=== PATIENT | female | born 1970 | race Two or more races ===

== ENCOUNTER 2016-08-18 16:07 | Emergency (ER) | payer OTHER ==
[~2016-08-18] VITALS: Ht 154.9 cm; Wt 68.9 kg
[2016-08-18 16:55] LABS: Basophils # (auto) 0.1 uL; Basophils % (auto) 0.4 % (0.0-2.0); Eosinophils # (auto) 0 uL; Eosinophils % (auto) 0.3 % (0.0-7.0); Hematocrit 42.5 % (36.0-46.0); Hemoglobin 14.3 g/dL (12.2-16.2); Lymphocytes # (auto) 1.7 uL; Lymphocytes % (auto) 12.8 % (10.0-50.0); Mean Corpuscular Hemoglobin 29.4 pg (28.0-32.0); Mean Corpuscular Hgb Conc. 33.7 g/dL (32.0-36.0); Mean Corpuscular Volume 87.4 fL (80.0-100.0); Mean Platelet Volume 6.6 fL (7.4-10.4); Monocytes # (auto) 0.5 uL; Monocytes % (auto) 3.8 % (0.0-12.0); Neutrophils # (auto) 11.2 uL; Neutrophils % (auto) 82.7 % (37.0-80.0); Platelet Count (auto) 423 10^3/uL (140-450); Red Cell Distribution Width 12.8 % (11.6-16.0); White Blood Cell 13.6 10^3/uL (4.4-10.8)
[2016-08-18 17:12] LABS: Albumin 3.5 g/dL (3.4-5.0); BUN/Creatinine Ratio 12.5; Calcium 8.1 mg/dL (8.5-10.1)
[2016-08-18 17:15] LABS: Bilirubin, Total 0.8 mg/dL (0.2-1.0); Total Protein 7.8 g/dL (6.4-8.2)
[2016-08-18 18:57] VITALS: BP 139/103
[2016-08-18 20:25] LABS: Urine Bilirubin Negative (Negative); Urine Blood Negative /uL (Negative); Urine Color Yellow (Yellow); Urine Glucose Normal (Normal); Urine Ketone Negative (Negative); Urine Nitrite Negative (Negative); Urine RBC 1 /hpf (0 - 4); Urine Squamous Epithelial Cell FEW /hpf (<5); Urine Urobilinogen Normal (Negative)
[2016-08-18] MEDS ORDERED: POTASSIUM CHL 20 Meq TABLET PO ONE (21:00)
== END 2016-08-18 21:13 | disposition home or self-care (01) ==
LOC: ER 16:16
DX: R55 Syncope and collapse (principal); R42 Dizziness and giddiness; Z88.6 Allergy status to analgesic agent; I10 Essential (primary) hypertension; N39.0 Urinary tract infection, site not specified; Z91.19 Patient's noncompliance with other medical treatment and regimen
CPT/HCPCS: 36415; 73130; 80053; 81001; 82962; 84484; 85025; 93005

== ENCOUNTER 2018-04-26 01:16 | Emergency (ER) | payer OTHER ==
[~2018-04-26] VITALS: Ht 154.9 cm; Wt 72.6 kg
[2018-04-26 01:43] VITALS: BP 140/87
== END 2018-04-26 06:06 | disposition left against medical advice (07) ==
LOC: ER 01:18
DX: R42 Dizziness and giddiness (principal); Z53.21 Procedure and treatment not carried out due to patient leaving prior to being seen by health care provider
CPT/HCPCS: 93005

== ENCOUNTER 2024-05-12 19:18 | Emergency (ER) | payer OTHER ==
[~2024-05-12] VITALS: Ht 154.9 cm; Wt 69.9 kg
[2024-05-12 19:51] VITALS: BP 172/104; PULSE 66; RESP 18; O2SAT 95
[2024-05-12] MEDS ORDERED: KETOROLAC TROMETH 60MG/2ML VIAL IM ONE (20:15)
[2024-05-12 20:21] LABS: Urine Bacteria FEW /hpf (None Seen); Urine Blood 2+ /uL (Negative); Urine Clarity Turbid (Clear); Urine Color Colorless (Yellow); Urine Mucus FEW (None Seen); Urine Protein, UAD 1+ (Negative); Urine Specific Gravity 1.006 (1.001-1.035); Urine Urobilinogen Normal (Negative); Urine WBC 271 /hpf (0 - 5)
[2024-05-12 21:16] LABS: Basophils # (auto) 0.1 10 ^3/uL (0-0.2); Basophils % (auto) 0.6 % (0.0-2.0); Eosinophils # (auto) 0.1 10 ^3/uL (0-0.8); Eosinophils % (auto) 0.3 % (0.0-7.0); Hematocrit 40.4 % (36.0-46.0); Hemoglobin 14.1 g/dL (12.2-16.2); Lymphocytes % (auto) 13.5 % (10.0-50.0); Mean Corpuscular Hemoglobin 30.1 pg (28.0-32.0); Mean Corpuscular Hgb Conc. 34.9 g/dL (32.0-36.0); Mean Corpuscular Volume 86.4 fL (80.0-100.0); Monocytes # (auto) 0.7 10 ^3/uL (0-1.3); Monocytes % (auto) 4.5 % (0.0-12.0); Neutrophils % (auto) 81.1 % (37.0-80.0); Platelet Count (auto) 436 10^3/uL (140-450); Red Blood Cells 4.68 10^6/uL (4.0-5.20); Red Cell Distribution Width 13.4 % (11.8-14.3); White Blood Cell 14.8 10^3/uL (4.4-10.8)
[2024-05-12 21:29] LABS: Alanine Aminotransferase 14 U/L (7-40); Albumin 4.6 g/dL (3.2-4.8); Alkaline Phosphatase 114 U/L (46-116); Anion Gap 9 (5-15); Aspartate Aminotransferase 15 U/L (13-40); BUN/Creatinine Ratio 8.5 (10.0-20.0); Bilirubin, Total 1.1 mg/dL (0.2-1.0); Blood Urea Nitrogen 6 mg/dL (9-23); Calcium 9.8 mg/dL (8.7-10.4); Carbon Dioxide 26 mmol/L (20-31); Chloride 106 mmol/L (98-107); Glucose 112 mg/dL (74-106); Potassium 3.6 mmol/L (3.5-5.1); Sodium 141 mmol/L (136-145); Total Protein 7.5 g/dL (5.7-8.2)
[2024-05-12] MEDS ORDERED: NAP500T GT (23:36)
== END 2024-05-13 00:19 | disposition home or self-care (01) ==
LOC: ER 19:18
DX: R10.2 Pelvic and perineal pain (principal); R19.7 Diarrhea, unspecified; I10 Essential (primary) hypertension; Z90.49 Acquired absence of other specified parts of digestive tract
CPT/HCPCS: 36415; 74176; 80053; 81001; 85025; 99284; J7030

== ENCOUNTER 2025-04-26 07:02 | Day surgery (SDC) | payer MEDICAID ==
[2025-04-26] VITALS (8 sets, daily range): BP systolic 91–105; BP diastolic 57–68; PULSE 55–63; RESP 12–16; O2SAT 95–100
[~2025-04-26] VITALS: Ht 154.9 cm; Wt 72.6 kg
[~2025-04-26 07:02] MED LIST: ATOR-507 PO; LISI40TA16 PO; METO-159 PO
[2025-04-26] MEDS: LIDOCAINE VISCOUS 2% 15ML UD MT PRN (08:50)
[2025-04-26] MEDS: fentaNYL CITRATE 100 MCG/2 ML VL IV ONE (08:51)
[2025-04-26] MEDS: MIDAZOLAM HCL 2MG/2ML 2ml VIAL (1mg/ml) IV ONE (08:53)
--- NOTE | 2025-04-26 09:05 | DVHOP2 ---
Operative Report Operative Report CARDIAC DATA MANAGEMENT ASSOCIATE PROCEDURE REPORT [place], [place] Date of Service: 04/26/25 Pediatric Geneticist: Josette Byrd MD PROCEDURES PERFORMED: trans esophageal echocardiogram, conscious sedation <15 mins, doppler assesment complete RONAL, PREOPERATIVE DIAGNOSES: secundum ASD POSTOP DIAGNOSIS: Same DESCRIPTION OF PROCEDURE: The patient or appropriate family signed informed consent understanding the risks, benefits and alternatives of the procedure, they wished to proceed. The patient was brought to the cardiac cathead worker in [place] state. the patient was given 15 ml of oral viscous lidocaine. the patient was placed in a left lateral decubitus position with bite block in mouth. NExt conscious sedation was administered per cathead worker protocol with 1__ mg of versed and _50__ mcg of fentanyl. Next a RONAL probe was advanced to the mid esophagus with ease and multiple planar images obtained. At the completion of the procedure , probe was removed and there were no immediate complications. FINDINGS: Left Ventricle: Normal LV size and function, LVEF estimated at 60% Right Ventricle: Normal RV function. RV enlarged Left atrium: enlarged, mild Right atrium: mild enlarged Left atrial appendage: no thrombus noted, Aortic valve: trileaflet valve, no severe or AI Mitral Valve: structurally normal, mild mitral regurg, no MS Tricuspid Valve: moderate tricuspid regurgitation, no TS Pulmonic Valve: structurally normal, no severe PI or PS Interatrial septum: + 0.8 cm ASD noted, on color flow there is a confirmed shunt with velocity of 1 m/s , the bubble study was markedly + Ascending aorta: no severe plaquing PLAN: LHC and RHC shunt run ASD workup JOSETTE BYRD MD Apr 26, 2025 09:05
--- NOTE | 2025-04-26 12:48 | DVHOP2 ---
Operative Report Operative Report CARDIAC CONVEYOR MONITOR PROCEDURE REPORT [place], [place] Date of Service: 04/26/25 Crematory Operator: Josette Byrd MD PROCEDURES PERFORMED: Coronary angiogram, left heart catheterization, conscious sedation administration and supervision, less than 15 minutes; fluoroscopy use and interpretation. Right heart catheterization, shunt rn PREOPERATIVE DIAGNOSES: ASD POSTOP DIAGNOSIS: ASD DESCRIPTION OF PROCEDURE: The patient or appropriate family signed informed consent understanding the risks, benefits and alternatives of the procedure, they wished to proceed. The patient was brought to the cardiac veterinary laboratory diagnostician in n.p.o. state. The patient was prepped in a sterile fashion. Sedation was used per cardiac cath protocol. I gave 1 cc of lidocaine to R antecubital IV spot and wired and placed a 6F sheath. I administered 2 mL of 2% lidocaine to the right wrist. With an antegrade front wall puncture. I cannulated the right radial artery and placed a 6-[place] Glidesheath slender. Next, an intra-arterial spasmolytic was administered. Next, a - 6French Jackson c atheter an pigtail and were used for coronary angiogram and LVEDP measurement and pressure pullback. At the completion of procedure, all guides and wires were removed, and there were no immediate complications. RHC was performed via brachial approach with 6F swan elieser catheter placement into Pulm artery FINDINGS: RCA: Moderate vessel off the right sinus of Valsalva, there is no severe flow limiting stenosis. normal vessel. dominant LEFT MAIN: Moderate size left main, it bifurcates into LAD and circumflex. no stenosis CIRCUMFLEX: Moderate caliber vessel coming off the left main with no flow limiting stenosis. LAD: LAD is a moderate caliber vessel coming of the left main. no stenosis RA: 1 RV 14/3/3 PA 26/05/11 PCW of 2 Ao 94/58/71 LV 100/1/11 SVC of 76.7% RA sat 79.3% RV 78.1% PA 76% PCW of 91% Ao 98% CONCLUSIONS: 1. secundum ASD PLAN: Aggressive risk factor modification and medical management for the patient. tertiary care workup for ASD closure JOSETTE BYRD MD Apr 26, 2025 12:48
--- NOTE | 2025-04-27 07:37 | ECG ---
[facility] Test Date: 2025-04-26 Test Time: 07:54:38 Pat Name: HAKEEM HANSEN Department: Room: Gender: F [employer] Operations Specialist: : [id number] Requested By: JOSETTE BYRD Order Number: [id number] Reading MD: Krishna Carpio Measurements Intervals [place] Rate: 51 P: 51 UT: 146 QRS: 29 QRSD: 68 T: 27 QT: 426 QTc: 392 Interpretive Statements Sinus bradycardia Electronically Signed On 04-27-2025 18:12:38 PDT by Krishna Carpio Please click the below link to view image of tracing.
== END 2025-04-26 13:43 | disposition home or self-care (01) ==
LOC: CATH 07:02
PROVIDERS: ATTEND Internal Medicine
DX: Q21.11 Secundum atrial septal defect (principal); I08.1 Rheumatic disorders of both mitral and tricuspid valves; Z79.899 Other long term (current) drug therapy; Z88.8 Allergy status to other drugs, medicaments and biological substances
CPT/HCPCS: 36600; 82805; 93005; 93312; 93320; 93325; 93460; C1769; C1894; J7030; 99152; 99153